=== PATIENT | male | born 1960 | race Caucasian/White ===

== ENCOUNTER 2016-09-06 09:10 | Emergency (ER) | payer OTHER, MEDICAID ==
[2016-09-06 09:34] VITALS: BP 145/79; BMI 25.4
--- NOTE | 2016-09-06 09:45 | DR.EXTPAIN ---
HPI - Time seen Time seen: 09:40 - PCP Primary Care Physician: RENETTA MALDONADO - HPI Comment HPI Comment: STARTED 11 DAYS AGO. PREVIOUS SURGERY SAME ANKLE. INCREASING PAIN. HAVE INDWELLING VAGAL STIMULATOR. - Complaint/Symptoms Chief Complaint Doctor Comments: RIGHT ANKLE PAIN TIMES Chief Complaint:: PT C/O SWELLING AND PAIN TO HIS RIGHT ANKLE AND HEEL AREA PT STATES THIS HAS BEEN GOING ON FOR 3 WEEKS,, BUT HE HURT HIS ANKLE WHILE STEPPING UP IN HIS TRUCK . PT HAS SUREGERY YEARS AGO AND HE HAS A STEEL PLATE AND 5 SREWS:. Self Treatment fo Chief Complaint: LIDOCAINE CREAM - Nurses notes reviewed Nurses Notes Review: Yes - Source History Provided: Patient - Mode of arrival Mode of Arrival: Ambulatory - Timing Onset of Chief Complaint: 08/17/16 - Context History of: None - Associated signs and symptoms Associated Signs and Symptoms: Pain, Swelling PMH - PMH Past Medical History: Yes Past Medical History: Hypertension, Seizures Past Surgical History: Yes Surgical History: Ortho Surgery Past Surgical History Comment: BACK SURGERY , VAGAL NERVE STIMULATOR IN CHEST, HERNIA - Family History History of Family Medical Conditions: No - Social History Does patient currently use any type of tobacco product: Yes Have you used tobacco products in the last 12 months: Yes Type of Tobacco Use: None How many years tobacco product used: 40 Does any household member use tobacco: No Alcohol Use: None Do you use any recreational Drugs:: No Lives With: Family Lives Where: Home - infectious screening In the last 2 months have you had wt loss of >10#?: NO Have you had fever, night sweats or hemotysis?: No Have you traveled outside the country in the last 6 months?: No Isolation: Standard ROS - Review of Systems Constitutional: No Symptoms Reported Eyes: No Symptoms Reported ENTM: No Symptoms Reported Respiratoy: No Symptoms Reported Cardiovascular: No Symptoms Reported Gastrointestinal/Abdominal: No Symptoms Reported Genitourinary: No Symptoms Reported Neurological: No Symptoms Reported Musculoskeletal: Right, Ankle Integumentary: Bruises Hematologic/Lymphatic: No Symptoms Reported Endocrine: No Symptoms Reported All Other Systems: Reviewed and Negative PE - Vital Signs Vitals: Temperature 98.1 F Pulse Rate 83 Respiratory Rate 20 Blood Pressure 145/79 O2 Sat by Pulse Oximetry 100 - General Limitations: No Limitations General Appearance: Alert - Head Head Exam: Normal Inspection - Eyes Eye exam: Normal Appearance - ENT ENT Exam: Normal External Ear Exam - Neck Neck Exam: Normal Inspection - Chest Chest Inspection: Symmetric Chest Wall Rise - Respiratory Respiratory Exam: Normal Lung Sounds Bilat Respiratory Exam: Bilateral Clear to Auscultation - Cardiovascular Cardiovascular Exam: Regular Rate, Normal Rhythm, Normal Heart Sounds - Abdominal Exam Abdominal Exam: Normal Bowel Sounds, Soft. negative: Tenderness - Extremities Extremities Exam: Tenderness (RIGHT ANKLE TENDERNESS.), Joint Swelling (RIGHT ANKLE SWELLING.) - Lower Extremities Neurovascular/Tendon Exam: Normal Capillary Refill Gait Exam: Observed & Limited by Pain - Back Back Exam: Paraspinal Tenderness - Neurological Neurological Exam: Alert, Oriented X3 - Psychiatric Psychiatric Exam: Normal Affect, Normal Mood - Skin Skin Exam: Erythema MDM - Differential Diagnosis Differential Diagnosis: Abrasion, Contusion, Fracture, Sprain Course - Treatment Treatment: SEE ORDERS. SPLINT APPLIED IN ED. - Education/Counseling Education/Counseling: Patient, Education Educated On: Treatment, Diagnosis, Needs for Follow Up ROR - XRAY XRAY Interpreted by: Radiologist XRAY Findings: REPORT DISCUSS WITH PATIENT - Diagnosis Discharge Problem: Ankle sprain Qualifiers: Encounter type: initial encounter Involved ligament of ankle: unspecified ligament Laterality: right Qualified Code(s): S93.401A - Sprain of unspecified ligament of right ankle, initial encounter - Discharge Plan Disposition: 01 HOME, SELF-CARE Condition: Stable Prescriptions: Acetaminophen with Codeine [Tylenol/Codeine #3 300-30 mg] 1 tab PO Q4-6H PRN # 15 tab PRN Reason: Pain - Follow ups/Referrals Follow ups/Referrals: NFD,None [Primary Care Provider] - 3 days - Instructions Instructions: Ankle Sprain, [id number] Additional Instructions: RETURN TO ED IF WORSE.
--- NOTE | 2016-09-06 10:44 | RAD ---
HISTORY: 56-year-old male with pain and swelling to the right ankle for several weeks. Study: Multiple views right ankle. Comparison: Right ankle radiographs January 16, 2014 Findings: Stable appearance of lateral compression plate with anchoring screws and compression screws the of t he medial malleolus without evidence of hardware failure malfunction that transfix a well-healed ling ateral malleolar fractures. No new fracture or malalignment. Talar dome is intact. The ankle mortise remains well aligned. No significant soft tissue swelling or injury can be seen. The visualized portions of the talus and calcaneus are unremarkable. IMPRESSION: 1. No acute fracture or malalignment of the right ankle. 2. Status post ORIF bilateral malleolar fractures. Reported By:
== END 2016-09-06 11:21 | disposition home or self-care (01) ==
LOC: ER 09:10
DX: S93.401A Sprain of unspecified ligament of right ankle, initial encounter (principal); Y33.XXXA Other specified events, undetermined intent, initial encounter; Y92.9 Unspecified place or not applicable
CPT/HCPCS: 73610; 99282; 99283

== ENCOUNTER → 2016-09-25 | Outpatient (CLI) | payer OTHER, MEDICAID ==
[2016-09-06 09:34] VITALS: BP 145/79
== END ==
LOC: LAB 13:12
PROVIDERS: ATTEND Psychiatry & Neurology Neurology
DX: M25.571 Pain in right ankle and joints of right foot (principal)
CPT/HCPCS: 36415; 85652; 86140

== ENCOUNTER → 2016-10-21 | Outpatient (CLI) | payer OTHER, MEDICAID ==
--- NOTE | 2016-10-22 08:25 | RAD ---
Right ankle arthrogram Indication: Right ankle pain. History of fixation. Comparison: September 06, 2016 radiograph. Technique: After discussion of risks and benefits, time outs were performed. Patient is prepped and d raped in the usual sterile fashion. Local anesthetic was applied. Under fluoroscopic guidance, a 25 g auge 1/2 inch needle was advanced to the tibiotalar joint from an anterior medial approach. Contrast was placed within the joint. A mixture of saline, lidocaine an ani PICC 240 were placed in the joint. Findings: Postsurgical change with posttraumatic tibiotalar bowel DJD suggested. 1.48 seconds of total fluoro time. Impression: 1. Successful right ankle arthrogram without complication. 2. DJD and postsurgical changes. Reported By:
--- NOTE | 2016-10-22 10:02 | CT ---
CT left ankle arthrogram Indication: Left ankle pain. History of surgery and remote trauma. Technique: Helical images through the left ankle after intra-articular contrast per protocol. See sep arately dictated left ankle arthrogram report. Coronal and sagittal reformats provided. No IV contras t given. Findings: There is postsurgical change at the medial malleolus with healed fracture and 2 threaded sc rews of the medial malleolus, without evidence of loosening. Lateral malleolus sideplate and screw fi xation hardware is intact without evidence of loosening or failure. No acute fracture seen. The tibio talar joint is in normal position with normal thinning of the tailor in cartilage. No large osteochon dral defects seen. Subtalar joints show minimal degenerative change. Sinus tarsi fat is normal. Achil les tendon is intact. The extensor tendons are normal. Peroneal tendons appear intact. Calcaneofibula r ligament is normal. ATFL cannot be convincingly demonstrated may be chronically injured. Mild poste rior tibial tendon tendinosis is possible. Flexor hallucis longus and flexor digitorum appear normal. Tarsal tunnel structures are normal. Syndesmotic ligaments lower less well seen due to osteophytes b ut may be intact. Heterotopic ossification about the ankle fracture sites, with enthesopathy along th e distal syndesmotic ligaments noted. No cortical destruction identified. No aggressive periosteal re action seen. Impression: 1. 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 No large osteochondral defect seen. 2. No specific evidence of hardware loosening or failure. 3. No acute fracture. 4. Mild posterior tibialis tendinosis. 5. Chronic ATFL injury possible. Deltoid ligament in remaining ligaments appear relatively intact wit h osteophytes and contrast obscuring some detail.. Reported By:
== END ==
LOC: RAD 12:46
PROVIDERS: ATTEND Specialist
PROC: BQ2 Imaging, Non-Axial Lower Bones, Computerized Tomography (CT Scan) (ICD-10-PCS; principal; 2016-10-21)
DX: M25.571 Pain in right ankle and joints of right foot (principal); K21.9 Gastro-esophageal reflux disease without esophagitis; E78.2 Mixed hyperlipidemia; G40.89 Other seizures
CPT/HCPCS: 73701; 77002

== ENCOUNTER 2017-01-02 17:39 | Emergency (ER) | payer OTHER, MEDICAID ==
[2017-01-02 17:49] VITALS: BP 170/90; BMI 27.4
[2017-01-02] MEDS ORDERED: TORADOL 60 MG VIAL IM ONE (18:54)
[2017-01-02] MEDS ORDERED: DECADRON INJ IM ONE (18:54)
--- NOTE | 2017-01-02 19:02 | DR.GENAD ---
HPI - PCP Primary Care Physician: antonio duran - Complaint/Symptoms Chief Complaint Doctors Comments: Patient is complaining of back pain for the past 2-3 days getting worst this evening. States he goes to a pain mangement doctor in [place], Dr. Alvarado and he has him on Methadone and Hydrocodone but it is not completely relieving the pain and he does not want to take to much of the pain medicines. States the pain is 8 of 10 with the pain worst when he bends. States he had back surgery 6-7 years ago. States he has been having dysuria, but denies chest pain, fever or chills. He smokes one pack cigarettes daily and denies alcohol or drug usage. Chief Complaint:: "back pain for two days now" - Nurses notes reviewed Nurses Notes Review: Yes - Source History Provided: Patient - Mode of Arrival Mode of Arrival: Ambulatory - Timing Onset of Chief Complaint: 12/31/16 Came on: Gradually - Duration Duration: Constant How lon Duration: Days - Location Location: left lower back and paraspinal back - Severity Severity: Moderate - Modifying Factors Worsens:: movement Improves:: nothing PMH - PMH Past Medical History: Yes Past Medical History: Hypertension, Seizures Past Medical History Comment: back pain Past Surgical History: Yes Surgical History: Ortho Surgery Past Surgical History Comment: back - Family History History of Family Medical Conditions: No - Social History Does patient currently use any type of tobacco product: Yes Have you used tobacco products in the last 12 months: Yes Type of Tobacco Use: Cigarettes How many years tobacco product used: 20 Does any household member use tobacco: No Alcohol Use: Occasionally Do you use any recreational Drugs:: No Lives With: Family Lives Where: Home - infectious screening In the last 2 months have you had wt loss of >10#?: NO Have you had fever, night sweats or hemotysis?: No Have you traveled outside the country in the last 6 months?: No Isolation: Standard ROS - Review of Systems Constitutional: No Symptoms Reported, Fever, Loss of Appetite. negative: See HPI, Chills, Diaphoresis, Malaise, Weakness, Irritable, Fatigue, Other Eyes: No Symptoms Reported. negative: See HPI, Eye Pain, Blurred Vision, Tearing, Discharge, Photophobia, Diplopia, Other ENTM: No Symptoms Reported, Nose Discharge, Nose Congestion Respiratoy: No Symptoms Reported, Dry Cough, Brassy Cough. negative: See HPI, Productive Cough, Non-Productive Cough, Moist Cough, Hacking Cough, Barking Cough, Orthopnea, Short of Breath, Stridor, Wheezing, Hemoptysis, Other Cardiovascular: No Symptoms Reported. negative: See HPI, Chest Pain, Edema, Palpitations, Syncope, Cyanosis, Skin Mottling, Other Gastrointestinal/Abdominal: No Symptoms Reported, Abdominal Pain, Constipation Genitourinary: No Symptoms Reported, Dysuria, Frequency, Pain Neurological: No Symptoms Reported Musculoskeletal: No Symptoms Reported Integumentary: No Symptoms Reported, See HPI, Change in Color, Lumps, Rash Hematologic/Lymphatic: No Symptoms Reported Endocrine: No Symptoms Reported, Decreased Appetite. negative: See HPI, Excessive Sweating, Flushing, Intolerance to Cold, Intolerance to Heat, Increased Hunger, Increased Thirst, Increased Urine, Unexplained Weight Gain, Unexplained Weight Loss, Failure to Thrive, Other Psychiatric: No Symptoms Reported, See HPI PE - Vital Signs Vitals: Temperature 98 F Pulse Rate 77 Respiratory Rate 18 Blood Pressure 170/90 O2 Sat by Pulse Oximetry 100 - General Limitations: No Limitations General Appearance: Alert, In Distress (moderate) - Head Head Exam: Normal Inspection, Atraumatic, Normocephalic - Eyes Eye exam: Normal Appearance, PERRL, EOMI. negative: Scleral Icterus, Conjunctival Injection, Nystagmus, Miosis, Mydrasis, Periorbital Swelling, Periorbital Tenderness, Other - ENT ENT Exam: Normal Exam, Normal Oropharynx, Normal External Ear Exam, Mucous Membranes Moist, TM's Normal Bilaterally External Ear Exam: Normal External Inspection TM/Canal Exam: Bilateral Normal Nose Exam: Normal Nose Exam, Sinus Tenderness, Nasal Deviation, Crepitus, Septal Hematoma, Laceration Mouth Exam: Normal Inspection Throat Exam: Normal Inspection - Neck Neck Exam: Normal Inspection, Full ROM, Trachea Midline - Chest Chest Inspection: Normal Inspection, Symmetric Chest Wall Rise - Respiratory Respiratory Exam: Normal Lung Sounds Bilat Respiratory Exam: Bilateral Wheezing - Cardiovascular Cardiovascular Exam: Regular Rate, Normal Rhythm, Normal Heart Sounds - Abdominal Exam Abdominal Exam: Normal Inspection, Normal Bowel Sounds, Soft, Distention, Dimnished Bowel Sounds Abdominal Tenderness: Suprapubic. negative: RLQ, LUQ, LLQ, Epigastrium, Diffuse , Mild, Moderate, Severe, Other - Extremities Extremities Exam: Normal Inspection, Full ROM, Tenderness, Normal Capillary Refill - Back Back Exam: Normal Inspection, Full ROM, Tenderness, Paraspinal Tenderness, (R) Straight Leg Raise - Neurologic Neurological Exam: Alert, Oriented X3, CN II-XII Intact, Normal Gait, Reflexes Normal - Skin Skin Exam: Warm, Normal Color ROR - Labs Reviewed Laboratory Results Reviewed?: Yes (all labs results reviewed and discussed with patient) Laboratory: Specimen Type Clean catch urine 01/02/17 19:24 Urine Color Pale yellow (YELLOW) 01/02/17 19:24 Urine Appearance Clear (CLEAR) 01/02/17 19:24 Urine pH 7.0 (5.0 - 8.0) 01/02/17 19:24 Ur Specific [place] 1.010 (1.000-1.030) 01/02/17 19:24 Urine Protein Negative (NEGATIVE) 01/02/17 19:24 Urine Glucose (UA) Negative (NEGATIVE) 01/02/17 19:24 Urine Ketones Negative (NEGATIVE) 01/02/17 19:24 Urine Occult Blood Negative (NEGATIVE) 01/02/17 19:24 Urine Nitrite Negative (NEGATIVE) 01/02/17 19:24 Urine Bilirubin Negative (NEGATIVE) 01/02/17 19:24 Urine Urobilinogen Normal (NORMAL) 01/02/17 19:24 Ur Leukocyte Esterase 1+ (NEGATIVE) 01/02/17 19:24 Urine RBC None seen /HPF (NEGATIVE) 01/02/17 19:24 Urine WBC 0-3 /HPF (NEGATIVE) 01/02/17 19:24 Ur Squamous Epith Cells Rare /HPF (NEGATIVE) 01/02/17 19:24 Urine Bacteria Negative /HPF (NEGATIVE) 01/02/17 19:24 Ur Culture Indicated? No/not indicated 01/02/17 19:24 - Diagnosis Discharge Problem: Acute exacerbation of chronic low back pain, Dysuria, Degenerative disc disease , lumbar, Lumbosacral radiculopathy - Discharge Plan Disposition: 01 HOME, SELF-CARE Condition: Stable Prescriptions: Methylprednisolone Dosepak 4Mg [MEDROL DOSEPAK (4 mg tab x 21)] 1 dandre PO ONCE # 1 dandre - Follow ups/Referrals Follow ups/Referrals: HERRERA DURAN [Primary Care Provider] - 3 days - Instructions Instructions: Back Pain, Adult, [id number], Sciatica, [id number], Degenerative Disk Disease
[2017-01-02] MEDS ORDERED: DECADRON INJ ONE (19:16)
[2017-01-02] MEDS ORDERED: TORADOL 60 MG VIAL ONE (19:16)
[2017-01-02 19:42] LABS: BILIRUBIN,URINE NEGATIVE (NEGATIVE); BLOOD/HEMOGLOBIN,URINE NEGATIVE (NEGATIVE); GLUCOSE, URINE NEGATIVE (NEGATIVE); KETONES,URINE NEGATIVE (NEGATIVE); LEUKOCYTE ESTERASE ,URINE 1+ (NEGATIVE); NITRITES,URINE NEGATIVE (NEGATIVE); PROTEIN,URINE NEGATIVE (NEGATIVE); UROBILINOGEN,URINE NORMAL (NORMAL)
[2017-01-02 19:56] LABS: APPEARANCE,URINE CLEAR (CLEAR); BACTERIA,URINE NEGATIVE /HPF (NEGATIVE); COLOR,URINE PALE YELLOW (YELLOW); RBC,URINE NONE SEEN /HPF (NEGATIVE); SQUAMOUS EPITHELIAL CELL,UR RARE /HPF (NEGATIVE)
== END 2017-01-02 20:37 | disposition home or self-care (01) ==
LOC: ER 17:53
DX: G89.29 Other chronic pain (principal); M51.36 Other intervertebral disc degeneration, lumbar region; R30.0 Dysuria; M54.17 Radiculopathy, lumbosacral region
CPT/HCPCS: 81001; 96372; 99282; J1100; J1885

== ENCOUNTER → 2017-04-20 | Outpatient (CLI) | payer OTHER, MEDICAID ==
[~2017-04-20] MED LIST: NS 250 ML IV 250 ML IV ONE
[2017-04-20 08:08] LABS: ALANINE AMINOTRANSFERASE 33 Units/L (12-78); ALBUMIN 4.1 g/dL (3.4-5.0); ALKALINE PHOSPHATASE 87 Units/L (46-116); ASPARTATE AMINO TRANSFERASE 18 Units/L (15-37); BLOOD UREA NITROGEN 6 mg/dL (7-18); CALCIUM 8.9 mg/dL (8.5-10.1); CARBON DIOXIDE 32.4 mmol/L (21-32); CHLORIDE 95 mmol/L (98-107); CREATININE 0.83 mg/dL (0.70-1.30); SODIUM 132 mmol/L (136-145); TOTAL PROTEIN 7.6 g/dL (6.4-8.2); eGFR BLACK RACES > 60 (>60); eGFR NON BLACK RACES > 60 (>60)
--- NOTE | 2017-04-20 09:54 | CT ---
CT OF THE ABDOMEN AND PELVIS WITH CONTRAST HISTORY: Anterior abdominal pain. Prior hernia repair Comparison: 05/08/2014 Technique: Multiple axial images of the abdomen and pelvis were obtained from the lung bases to the pubic symphy sis follow the administration of IV contrast as well as oral contrast. Dose reduction techniques inc luding Automated Exposure Control (AEC) and adjustment of mA and kV were utlized. Findings: The heart is normal in size. There is no pericardial effusion. Lung bases are clear without focal con solidation, pleural effusion or pneumothorax. Liver and spleen are normal in size, enhancement characteristics and contour. No focal lesions. The p ortal vein is patent. No ductal dilitation. Gallbladder is present. No calcified gallstones or gallbl adder wall thickening. The pancreas is unremarkable. Adrenal glands are normal. Kidneys enhance symme trically without hydronephrosis or nephrolithiasis. No bowel obstruction or inflammation. Normal appendix. No abnormal appearing mesenteric or retroperit buchanan lymph nodes. No free fluid or fluid collections. Ventral hernia repair mesh is present and inta ct. The bladder is normal in appearance. Prostate not enlarged. No free fluid or abnormal pelvic lymph no colten. No aggressive osseous lesions. IMPRESSION: 1. No source of patient's abdominal pain is identified on this examination. Ventral hernia repair me appears intact. Reported By:
== END ==
LOC: RAD 07:40
PROVIDERS: ATTEND Nurse Practitioner Family
DX: R10.84 Generalized abdominal pain (principal); K43.2 Incisional hernia without obstruction or gangrene
CPT/HCPCS: 36415; 74177; 80053; A4222

== ENCOUNTER 2017-06-16 07:08 | Day surgery (SDC) | payer OTHER, MEDICAID ==
[2017-06-16] MEDS ORDERED: NS 1000 ML 1,000 ML ONE (07:18)
[2017-06-16] MEDS: ANCEF VIAL 1 GM ONE ×2 (07:58→08:48)
[2017-06-16] MEDS: MARCAINE 0.25% INJ ONE ×2 (07:58→09:09)
[2017-06-16] MEDS: NS 100 ML IV 100 ML IV ONE ×2 (07:59→08:48)
[2017-06-16] MEDS: XYLOCAINE 1% and EPINEPHRINE 1:100,000 ONE ×2 (07:59→09:09)
[2017-06-16] MEDS ORDERED: FENTANYL INJ 250 mcg ONE (08:28)
[2017-06-16] MEDS ORDERED: NS IRRIGATION 1000 ML 1,000 ML IR ONE (09:09)
[2017-06-16] MEDS ORDERED: REGLAN INJ 10 MG VIAL IVP PRN (10:04)
[2017-06-16] MEDS ORDERED: PHENERGAN INJ 25 MG IVP PRN (10:04)
[2017-06-16] MEDS ORDERED: ZOFRAN INJ 4 MG VIAL IVP PRN (10:04)
[2017-06-16] MEDS ORDERED: BENADRYL INJ 50 MG VIAL IVP PRN (10:04)
[2017-06-16] MEDS: DILAUDID INJ IVP PRN ×4 (10:07→10:24)
[2017-06-16] MEDS ORDERED: DILAUDID INJ ONE (10:13)
--- NOTE | 2017-06-16 10:38 | OR.GENERIC ---
Post-Op Note Generic - Post-Op Note Operative Report: Operative Report Date of Operation: June 16, 2017 Pre-Operative Diagnosis: Recurrent ventral hernia. Post-Operative Diagnosis: Recurrent ventral hernia. Procedure: Open ventral hernia repair with overlay mesh. Surgeon: Jonh Wallis MD Voice Teacher: Muriel North CRNA Specimens: None. Estimated blood loss: Minimal. Complications: None. Summary: The patient is a 56 year old male who presented with epigastric pain. The patient had undergone a laparoscopic ventral hernia repair in the past. However , a bulge was noted in the epigastric region. A CT of the abdomen failed to demonstrate a fascial defect. However, the patient demonstrated pain on exam in the region where the bulge was noted. The patient was offered ventral hernia repair. The risk and benefits of the procedure including difficulty with anesthesia, bleeding, infection, injury to intraabdominal contents requiring further surgery, recurrence, DVT, as well as PE were discussed with the patient. The patient understood these risks and requested the procedure. On June 16, 2017, the patient was brought to the operative theatre. A time out was performed verifying the patient and procedure. The patient received Ancef for pre-operative antibiosis. After satisfactory induction of general endotracheal anesthesia, the abdomen was prepped with Chloraprep and draped in the usual sterile fashion. The skin was incised sharply in the midline in the epigastric region. The incision was slowly carried through the dermis sharply until the fascia was encountered. The fascia was attenuated in this region. The fascia was elevated and opened sharply. The remaining dermis was opened over the surgeons finger using electrocautery. The edges of the fascia were elevated. A small amount of omentum was bluntly dissected free and reduced into the peritoneal cavity. The area of attenuated fascial measured approximately 4-1/2 cm. The fascia was re-approximated using interrupted #1 PDS sutures. A piece of prolene mesh was cut in a rectangular shape approximately 7 x 5 cm. This was placed in an overlay fashion and sutured to the fascia using #2 Ethibond U-stitches. Bleeding was controlled using electrocautery. A stab incision was placed in the right lower quadrant and a # 10 round drain placed in the wound. This was sutured in placed with 2-0 Prolene. The dermis was re-approximated using inverted, interrupted 3-0 Vicryl sutures. The skin edges were re-approximated using a running 4-0 Monocryl stitch. Mastisol and Steri-strips were placed. Sterile dressings were placed. The patient was awakened and taken to the recovery room in stable condition. There were no complications. All counts were correct.
[2017-06-16] MEDS ORDERED: PERCOCET TAB 5/325 MG ONE (11:09)
[2017-06-16 12:49] VITALS: BP 162/92
[2017-06-16] MEDS ORDERED: ROBINUL ONE (14:56)
[2017-06-16] MEDS ORDERED: VERSED ONE (14:56)
[2017-06-16] MEDS ORDERED: SUPRANE IN ONE (14:56)
[2017-06-16] MEDS ORDERED: NEOSTIGMINE INJ ONE (14:56)
[2017-06-16] MEDS ORDERED: QUELICIN (OR ANECTINE) ONE (14:56)
[2017-06-16] MEDS ORDERED: NORCURON INJ 10 MG VIAL ONE (14:56)
[2017-06-16] MEDS ORDERED: DIPRIVAN VIAL ONE (14:56)
[2017-06-16] MEDS ORDERED: XYLOCAINE 2 % (PLAIN) ONE (14:56)
== END 2017-06-16 11:45 | disposition home or self-care (01) ==
LOC: SURG1 07:08
PROVIDERS: ATTEND Student in an Organized Health Care Education/Training Program
PROC: 0WUF0JZ Supplement Abdominal Wall with Synthetic Substitute, Open Approach (ICD-10-PCS; principal; 2017-06-16 08:30)
DX: K43.2 Incisional hernia without obstruction or gangrene (principal)
CPT/HCPCS: A4216; S0020; J0330; J0690; J1170; J2001; J2250; J2710; J3010; J3490